=== PATIENT | female | born 1975 | race Caucasian/White ===

== ENCOUNTER 2021-04-23 04:37 | Day surgery (SDC) | payer OTHER ==
[2021-04-22 13:40] VITALS: BMI 29.2
[2021-04-23 12:47] VITALS: TEMP 97.7
[2021-04-23 13:44] VITALS: BP 130/89; PULSE 78
== END 2021-04-23 13:35 | disposition home or self-care (01) ==
LOC: JASU-ENDO 04:37
PROVIDERS: ATTEND Internal Medicine Gastroenterology
PROC: 0DB78ZX Excision of Stomach, Pylorus, Via Natural or Artificial Opening Endoscopic, Diagnostic (ICD-10-PCS; 2021-04-23)
PROC: 0DB98ZX Excision of Duodenum, Via Natural or Artificial Opening Endoscopic, Diagnostic (ICD-10-PCS; principal; 2021-04-23 12:28)
DX: K29.80 Duodenitis without bleeding (principal); K29.50 Unspecified chronic gastritis without bleeding
CPT/HCPCS: 81025; 88305-TC; 88342-TC

== ENCOUNTER 2023-08-23 04:33 | Day surgery (SDC) | payer OTHER ==
[2023-08-19 14:20] VITALS: BMI 28.3
[2023-08-23 11:01] VITALS: BP 118/73; PULSE 80; RESP 14; TEMP 98.2
== END 2023-08-23 11:00 | disposition home or self-care (01) ==
LOC: JASU-ENDO 04:33
PROVIDERS: ATTEND Internal Medicine Gastroenterology
PROC: 0DBN8ZX Excision of Sigmoid Colon, Via Natural or Artificial Opening Endoscopic, Diagnostic (ICD-10-PCS; 2023-08-23)
PROC: 0DBP8ZX Excision of Rectum, Via Natural or Artificial Opening Endoscopic, Diagnostic (ICD-10-PCS; principal; 2023-08-23 08:45)
DX: F12.11 Cannabis abuse, in remission (principal); K57.30 Diverticulosis of large intestine without perforation or abscess without bleeding; K64.8 Other hemorrhoids; K63.89 Other specified diseases of intestine
CPT/HCPCS: 81025; 88305-TC

== ENCOUNTER 2025-02-07 06:07 | Day surgery (SDC) | payer OTHER ==
[2025-02-04 12:00] VITALS: BMI 23.6
[2025-02-07] MEDS ORDERED: PHENAZOPYRIDINE HCL 100 MG TABLET (FP) ONE (06:40)
[2025-02-07] MEDS: PHENAZOPYRIDINE HCL 100 MG TABLET (FP) PO ONE (06:45)
[2025-02-07] MEDS ORDERED: LIDOCAINE HCL/PF 2% SDV 5ML VIAL ONE (07:14)
[2025-02-07] MEDS ORDERED: ROCURONIUM BROMIDE 50 MG/5 ML SYRINGE ONE (07:15)
[2025-02-07] MEDS ORDERED: PROPOFOL 20 ML ONE (07:15)
[2025-02-07] MEDS ORDERED: SUCCINYLCHOLINE CHLORIDE 200 MG/10 ML SYRINGE ONE (07:15)
[2025-02-07] MEDS ORDERED: MIDAZOLAM HCL 2 MG/2 ML SINGLE DOSE VIAL ONE (07:15)
[2025-02-07] MEDS ORDERED: DEXAMETHASONE SOD PHOSPHATE 4 MG/1 ML VIAL ONE (08:01)
[2025-02-07] MEDS ORDERED: SUGAMMADEX SODIUM 200 MG/2 ML VIAL ONE (09:40)
[2025-02-07] MEDS ORDERED: KETOROLAC TROMETHAMINE 30 MG/1 ML VIAL ONE (09:40)
[2025-02-07] MEDS ORDERED: ONDANSETRON 4 MG/2 ML VIAL ONE (09:40)
[2025-02-07] MEDS ORDERED: PROMETHAZINE HCL 25 MG/1 ML VIAL IVPB PRN (10:04)
[2025-02-07] MEDS ORDERED: ONDANSETRON 4 MG/2 ML VIAL IVPUSH PRN ×2 (10:04→10:10)
[2025-02-07] MEDS ORDERED: SIMETHICONE 80 MG TAB.CHEW (FP) PO PRN (10:10)
[2025-02-07] MEDS ORDERED: BISACODYL 5 MG TABLET.DR (FP) PO PRN (10:10)
[2025-02-07] MEDS ORDERED: DOCUSATE SODIUM 100 MG CAPSULE (FP) PO PRN (10:10)
[2025-02-07] MEDS: ACETAMINOPHEN 1000 MG/100 ML BAG IVPB ONE (10:15)
[2025-02-07] MEDS: LACTATED RINGERS SOLUTION 1,000 ML IV SCH (10:23)
[2025-02-07] MEDS: ACETAMINOPHEN 325 MG TABLET (FP) PO SCH (10:24)
[2025-02-07] MEDS ORDERED: IBUPROFEN 800 MG/8 ML IJ IVPB SCH (13:00)
[2025-02-07] MEDS: CEFAZOLIN 1 GM/D5W 1 GM/50 ML BAG IVPB SCH (17:28)
[2025-02-07 17:50] LABS: MCHC 30.3 g/dl (32.2-35.5); MEAN CELL VOLUME 84.3 fl (79.4-94.8); MEAN PLT VOLUME 10.3 fl (9.4-12.3); RDW 17.1 % (12.2-17.1)
[2025-02-07] MEDS: IBUPROFEN 800 MG/8 ML IJ IVPB SCH (18:14)
[2025-02-07 21:41] VITALS: TEMP 97.9
[2025-02-08 08:46] LABS: MCHC 30.4 g/dl (32.2-35.5); MEAN CELL VOLUME 84.3 fl (79.4-94.8); MEAN PLT VOLUME 11.2 fl (9.4-12.3); RDW 17.2 % (12.2-17.1)
[2025-02-08 09:08] LABS: CO2 26.0 mmol/L (21-32); GLUCOSE,RANDOM 120.0 mg/dL (74-106)
[2025-02-08 09:12] LABS: CREATININE 0.6 mg/dL (0.55-1.3)
[2025-02-08] MEDS: ENOXAPARIN NA (PORCINE) 40 MG/0.4 ML DISP.SYRIN SQ SCH (10:54)
[2025-02-08 11:35] VITALS: BP 126/80; PULSE 75; RESP 17
== END 2025-02-08 14:31 | disposition home or self-care (01) ==
LOC: JASUSAT 06:07 → JASU-SURG 06:07 → J8W 13:04 → JASUSAT 02-08 14:31
PROVIDERS: ATTEND Obstetrics & Gynecology
PROC: 0UT0FZZ Resection of Right Ovary, Via Natural or Artificial Opening With Percutaneous Endoscopic Assistance (ICD-10-PCS; 2025-02-07)
PROC: 8E0W4CZ Robotic Assisted Procedure of Trunk Region, Percutaneous Endoscopic Approach (ICD-10-PCS; 2025-02-07)
PROC: 0UT9FZZ Resection of Uterus, Via Natural or Artificial Opening With Percutaneous Endoscopic Assistance (ICD-10-PCS; principal; 2025-02-07 07:45)
PROC: 0UT7FZZ Resection of Bilateral Fallopian Tubes, Via Natural or Artificial Opening With Percutaneous Endoscopic Assistance (ICD-10-PCS; 2025-02-07 07:45)
DX: N80.03 Adenomyosis of the uterus (principal); N80.101 Endometriosis of right ovary, unspecified depth; N80.202 Endometriosis of left fallopian tube, unspecified depth; N83.12 Corpus luteum cyst of left ovary; N83.8 Other noninflammatory disorders of ovary, fallopian tube and broad ligament; N70.91 Salpingitis, unspecified
CPT/HCPCS: 58554; S2900; 36415; 80048; 81025; 85027; 86850; 86900; 86901; 88305-TC; 88307-TC; 94760